=== PATIENT | male | born 1975 | race Two or more races ===

== ENCOUNTER 2025-05-23 06:34 | Day surgery (SDC) | payer MEDICARE, MEDICAID, SELFPAY ==
[2025-05-19 14:24] VITALS: BMI 37.8
--- NOTE | 2025-05-20 09:20 | EKG_ITS ---
[facility] Test Date: 2025-05-20 Pat Name: KISHA SEVILLA Department: Room: - Gender: Male Speech Lang Path: PAU : 1975 Requested By: Jamilah Cardoza Order Number: [id number] Reading MD: Jamilah Cardoza Measurements Intervals [place] Rate: 57 P: 29 TX: 155 QRS: -15 QRSD: 110 T: 63 QT: 424 QTc: 416 Interpretive Statements SINUS BRADYCARDIA INCOMPLETE RIGHT BUNDLE BRANCH BLOCK [90+ ms QRS DURATION, TERMINAL R IN V1/V2, 40+ ms S IN I/aVL/V4/V5/V6] No previous ECG available for comparison /[id number]
[2025-05-20 10:06] LABS: Basophils # (Auto) 0.0 Thou/mm3 (0.0-0.2); Basophils % (Auto) 0 % (0-2.5); Eosinophils # (Auto) 0.3 Thou/mm3 (0.0-0.5); Eosinophils % (Auto) 4 % (0-10); Hematocrit 45.5 % (41.0-53.0); Hemoglobin 15.8 g/dL (13.5-16.0); Immature Granulocytes Auto 0.01 Thou/mm3 (0.00-0.00); Lymphocytes # (Auto) 2.7 Thou/mm3 (1.0-4.8); Lymphocytes % (Auto) 34 % (10-50); Mean Corpuscular HGB Conc 34.7 g/dl (31.0-37.0); Mean Corpuscular Hemoglobin 30.7 pg (25.0-35.0); Mean Corpuscular Volume 88 fL (80-100); Monocytes # (Auto) 0.6 Thou/mm3 (0.0-0.8); Monocytes % (Auto) 8 % (0-12); Neutrophils # (Auto) 4.4 Thou/mm3 (1.8-7.7); Neutrophils % (Auto) 54 % (37-80); Nucleated Red Blood Cell # 0.00 Thou/mm3 (0.00-0.00); Nucleated Red Blood Cell % 0 /100 WBC (0); Platelet Count 285 Thou/mm3 (140-440); RDW Standard Deviation 40.4 fL (35.1-43.9); Red Blood Count 5.15 Miln/mm3 (4.50-5.90); White Blood Count 8.1 Thou/mm3 (3.8-10.6)
[2025-05-20 10:14] LABS: INR 1.0 (0.9-1.3); Partial Thromboplastin Time 25.0 Seconds (22.0-36.0); Prothrombin Time 11.3 Seconds (9.0-12.2)
[2025-05-20 10:15] LABS: Anion Gap 12 (7-16); BUN/Creatinine Ratio 6 Ratio (12-20); Blood Urea Nitrogen 8 mg/dL (9-23); Calcium 9.9 mg/dL (8.3-10.6); Carbon Dioxide 29.6 mMol/L (20.0-31.0); Chloride 102 mMol/L (98-107); Creatinine (Component) 1.3 mg/dL (0.6-1.3); Estimated Creatinine Clearance 72.5 mL/min (>60); Glucose 110 mg/dL (74-106); Osmolality,Calculated 286 (275-295); Potassium 3.6 mMol/L (3.4-5.1); Sodium 144 mMol/L (136-145); eGFR > 60 See Note
[2025-05-23] VITALS (12 sets, daily range): BP systolic 122–180; BP diastolic 77–109; PULSE 57–78; RESP 12–18; TEMP 36.6–36.7; O2SAT 95–98
--- NOTE | 2025-05-23 09:21 | ESOP_ITS ---
RE: KISHA SEVILLA : 1975 DATE OF OPERATION: 05/23/2025 PROCEDURES PERFORMED: 1. Diagnostic left heart catheterization, selective coronary angiogram, left ventricular angiogram, CPT 52592. 2. Selective cannulation of left subclavian artery and left internal mammary artery angiogram. 3. Conscious sedation for 30 minutes duration. 4. Ultrasound-guided access of the right radial artery. DIAGNOSES: Coronary artery disease, abnormal stress test, angina pectoris, previous stent placement. HISTORY AND INDICATIONS: The patient is a 50-year-old male with a history of hypertension, CAD and previous stent placement to left anterior descending artery, who has been recurrent crescendo angina pectoris with abnormal stress test, multiple perfusion defects, anterolateral inferior wall segment, hence coronary angiogram recommended to assess if the patient is a candidate for coronary intervention and revascularization. PROCEDURE IN DETAIL: The patient was brought to the cardiac catheterization laboratory. He was given 2 mg Versed and 50 mcg of fentanyl and an additional 50 mcg of fentanyl for sedation. Right radial approach was used. The right radial artery was cannulated with a micropuncture technique. A 6-[place] Glidesheath was introduced. Selective right and left coronary angiogram was performed by a TIG 4 diagnostic catheter and a left coronary angiogram was performed by a [place] radial catheter, a 5-[place] catheter. Left heart catheterization and left ventricular angiogram were performed with TIG 4 diagnostic catheter. Subsequently, left subclavian and internal mammary angiogram was performed by using a [place] radial catheter. The patient tolerated the procedure with no complications. A radial cocktail was given after the cannulation of the radial artery. A TR band was applied. Hemostasis was secured. FINDINGS: Left ventricular pressure 144/2, EDP 17, aortic pressure 154/87. No gradient across the aortic valve. Left ventricular angiogram showed evidence of normal left ventricular wall motion, ejection fraction 70%. Coronary angiogram showed the following findings: Right coronary artery is small and nondominant, gives off RV branches. There is evidence of 80% stenosis in the proximal a small 2.5-mm vessel. Left coronary system, left main coronary artery is normal. Left anterior descending artery showed evidence of a stent in the proximal mid segment. There is in-stent restenosis of 80% to 90% at the bifurcation of the diagonal branch. Distal LAD is an excellent, 3-mm vessel. The circumflex artery is very large and dominant. Proximal circumflex artery showed a 95% stenosis of the proximal segment. Large obtuse marginal branch showed 80% stenosis at the origin as well. Distal circumflex artery gives off PL branches and posterior descending artery. Left subclavian artery is normal. Left internal mammary artery is normal and free of disease. SUMMARY OF FINDINGS AND SUGGESTIONS: 1. Severe multivessel coronary artery disease, triple-vessel CAD, with in-stent restenosis of 80% to 90% in the mid left anterior descending artery at the bifurcation of the diagonal branches. 2. Severe stenosis of proximal large dominant circumflex artery with 90% stenosis, as well as a large obtuse marginal branch showing 80% to 90% stenosis close to its origin and nondominant RCA showed 80% stenosis. Excellent left ventricular systolic function. RECOMMENDATIONS: Based on these findings, the patient is a good candidate for coronary artery bypass graft surgery for long-term results. Because of his age and excellent distal targets, I am recommending DEL ROSARIO to LAD and possibly radial artery graft to the circumflex OM branch and will recommend do bypass graft surgery. Refer for cardiothoracic surgery consultation as an outpatient. Recommended to continue aspirin 81 mg daily and medical management pending surgical consultation. DT: 08:42:32 TT: 09:12:00 Ref: [id number] - TID: [id number]
== END 2025-05-23 11:38 | disposition home or self-care (01) ==
PROVIDERS: Referring Provider Internal Medicine Cardiovascular Disease; Visit Provider Internal Medicine Cardiovascular Disease
PROC: (CPT 93459; principal; 2025-05-23 07:30)
DX: I25.118 Atherosclerotic heart disease of native coronary artery with other forms of angina pectoris (principal); I10 Essential (primary) hypertension; E78.00 Pure hypercholesterolemia, unspecified; Z01.810 Encounter for preprocedural cardiovascular examination; Z79.82 Long term (current) use of aspirin; Z79.899 Other long term (current) drug therapy
CPT/HCPCS: 93459; 36415; 80048; 85025; 85610; 85730; 93005; 99152; 99153; A4649; C1769; C1887; C1894; J0168; J0461; J1643; J2250; J2312; J2371; J3010; J3490; Q9967; J2305